=== PATIENT | male | born 1960 | race Caucasian/White ===

== ENCOUNTER → 2023-09-09 | Outpatient (REF) | payer OTHER ==
[~2023-09-09] MED LIST: ADVI200T17 PO; ATOR1TAB21 PO; CALCTAB89 PO; CO Q100C PO; D3 S1CAP PO; LISI20TA33 PO; LUPR22.5 IM; OMEG12003 PO; PANT40TA29 PO; SUCR1TA PO; THERTAB52 PO; VITA1CAP20 PO; ZINC220CA PO
[2023-09-09 13:58] LABS: PERCENT SATURATION 13.3 % (19.7-50.0)
[2023-09-09 14:01] LABS: FERRITIN 10.7 NG/ML (10.5-307.3)
== END ==
LOC: M LAB REF 12:16
PROVIDERS: ATTEND Internal Medicine
DX: D62 Acute posthemorrhagic anemia (principal)

== ENCOUNTER → 2024-09-13 | Outpatient (REF) | payer MEDICARE, OTHER | LOC: M LAB REF 17:26 | PROVIDERS: ATTEND Internal Medicine | DX: C61 Malignant neoplasm of prostate (principal) ==

== ENCOUNTER → 2025-02-23 | Outpatient (REF) | payer MEDICARE, OTHER ==
[2025-02-23 14:54] LABS: LDH LACTATE DEHYDROGENASE 194 U/L (120-246)
[2025-02-23 14:56] LABS: TESTOSTERONE < 7 NG/DL (241-827)
== END ==
LOC: M LAB REF 13:39
PROVIDERS: ATTEND Internal Medicine
DX: C61 Malignant neoplasm of prostate (principal)